=== PATIENT | male | born 2000 | race Two or more races ===

== ENCOUNTER 2025-02-19 21:35 | Emergency (ER) | payer OTHER ==
[~2025-02-19] VITALS: Ht 167.6 cm; Wt 69.4 kg
[2025-02-19] MEDS ORDERED: FAMOTIDINE/PF 20 MG/2 ML VIAL IV ONE (23:30)
[2025-02-19] MEDS ORDERED: 0.9 % SODIUM CHLORIDE 500 ML IV ONE (23:30)
[2025-02-19] MEDS ORDERED: KETOROLAC TROMETHAMINE 30 MG VIAL IM ONE (23:30)
[2025-02-19] MEDS ORDERED: ONDANSETRON HCL 2 MG/ML VIAL IV ONE (23:30)
[2025-02-19] MEDS ORDERED: 0.9 % SODIUM CHLORIDE 500 ML IV SCH (23:30)
[2025-02-19] MEDS ORDERED: KETOROLAC TROMETHAMINE 30 MG VIAL ONE (23:49)
[2025-02-19] MEDS ORDERED: ONDANSETRON HCL 2 MG/ML VIAL ONE (23:49)
[2025-02-19] MEDS ORDERED: FAMOTIDINE/PF 20 MG/2 ML VIAL ONE (23:49)
[2025-02-20 00:27] LABS: BASO % 0.4 % (0.1-1.2); EOS # 0.00 (0.04-0.54); EOS % 0.0 % (0.7-7.0); ERYTHROCYTE SEDIMENTATION RATE 21 mm/hr (0-15); LYMPH # 0.72 (1.18-3.74); LYMPH % 9.1 % (19.3-53.1); MEAN PLATELET VOLUME 10.20 fl (9.4-12.4); MONO # 0.49 (0.24-0.82); MONO % 6.2 % (4.7-12.5); NEUT # 6.66 (1.56-6.13); NEUT % 83.7 % (34.0-71.1); RED CELL DISTRIBUTION WIDTH 12.7 % (11.6-14.4)
[2025-02-20 00:42] LABS: INR 1.06
[2025-02-20 00:46] LABS: ALT/SGPT 50.0 U/L (12-78); AST/SGOT 26.0 U/L (15-37); BILIRUBIN TOTAL 0.47 mg/dL (0.3-1.2); BUN CREA RATIO 12.0 (7.0-25.0); CREATININE SERUM 1.08 mg/dL (0.70-1.30); GFR 82.65; GLOBULINA 4.3 G/DL (2.4-3.5); GLUCOSE FASTING 113.0 mg/dL (65-100); OSMOLALITY SERUM 273.0 MOSM/KG (275-295); PHOSPHOKINASE CREATININE 82.0 U/L (39-308)
[2025-02-20 01:14] VITALS: BP 106/62
[2025-02-20 01:16] LABS: COVID-19 AG NEGATIVE (NEGATIVE)
[2025-02-20] MEDS ORDERED: DOLOGEN 325-11 EACH PO (01:43)
[2025-02-20] MEDS ORDERED: ZOFRAN8 MG PO (01:43)
[2025-02-20] MEDS ORDERED: PEPCID AC20 MG PO (01:43)
[2025-02-20 02:45] VITALS: O2SAT 100
== END 2025-02-20 02:46 | disposition home or self-care (01) ==
LOC: ER
DX: B34.9 Viral infection, unspecified (principal); E86.0 Dehydration; Z87.09 Personal history of other diseases of the respiratory system; Z20.822 Contact with and (suspected) exposure to COVID-19